=== PATIENT | female | born 1955 | race Caucasian/White ===

== ENCOUNTER → 2020-06-01 | Outpatient (CLI) | payer MEDICARE, OTHER ==
[~2020-06-01] MED LIST: ASPI81TA86 PO; ATOR1TAB19 PO; BUSP30TA PO; CLON0.2T PO; DOCU-129 PO; FAMO40TA3 PO; HYDR-3363 PO; JARD1TAB PO; LEVO75TA4 PO; LISI2.5T2 PO; MELA3TAB49 PO; METF10004 PO; MYRB50TA PO; OMEG1CAP4 PO; OXYB10TA23 PO; PANT40TA29 PO; QUET5TAB PO; VENL150C43 PO
== END ==
LOC: M LABSMTC 13:12
PROVIDERS: ATTEND Anesthesiology
DX: Z01.812 Encounter for preprocedural laboratory examination (principal); Z20.828 Contact with and (suspected) exposure to other viral communicable diseases
CPT/HCPCS: C9803; U0002

== ENCOUNTER 2020-06-02 11:51 | Day surgery (SDC) | payer MEDICARE ==
[~2020-06-02] VITALS: Ht 160 cm; Wt 83.9 kg
[~2020-06-02 11:51] MED LIST changes: +LIDOCAINE 1% MDV 20ML VIAL SQ PRN; +LR 1,000 ML IV ONE; +ceFAZolin SOD 2 GM in IV 1 EA IV ONE
[2020-06-02] MEDS ORDERED: fentaNYL 100 MCG/2 ML INJECTION (J3010) As Ordered ONE (11:59)
[2020-06-02] MEDS ORDERED: MIDAZOLAM INJ 2MG/2ML VIAL (J2250 PER 1MG) As Ordered ONE (11:59)
[2020-06-02] MEDS ORDERED: propofoL 500 MG/50 ML VIAL As Ordered ONE (12:00)
[2020-06-02] MEDS ORDERED: BACITRACIN OINTMENT 30GM TUBE As Ordered ONE (12:36)
[2020-06-02] MEDS ORDERED: LIDOCAINE 1% SDV 30ML VIAL As Ordered ONE (12:36)
[2020-06-02] MEDS ORDERED: VANCOMYCIN 1000MG/20ML VIAL As Ordered ONE (12:36)
[2020-06-02 14:40] VITALS: BP 122/80
--- NOTE | 2020-06-22 16:13 | RO ---
DATE OF OPERATION: 06/02/2020 PREOPERATIVE DIAGNOSIS: Pacemaker battery depletion. PREOPERATIVE DIAGNOSIS: Pacemaker battery depletion. FINDINGS: Pacemaker battery depletion. PROCEDURE: * Ex-plantation of old dual-chamber pacemaker pulse generator ([employer]). * Implantation of new dual-chamber pacemaker pulse generator. * Insertion of medium sized TYRX antimicrobial envelope. SURGEON: Dewayne Field M.D. GERM DRIER: None. ANESTHESIA: Lidocaine 1% local/monitor anesthetic care. SPECIMENS: Old [employer] pacemaker pulse generator. ESTIMATED BLOOD LOSS: Less than 5 mL. BLOOD PRODUCTS: No blood products were placed. DRAINS: No drains. COMPLICATIONS: None. PROCEDURE DESCRIPTION: The patient was prepped and draped over the left pectoral region and 3M Ioban film was applied. Lidocaine 1% was used for local anesthetic. A Peak PlasmaBlade was used to make an incision through the existing scar of the pacemaker pulse generator in the left pectoral region. The Peak PlasmaBlade was used to dissect down to the pacemaker pulse generator. I noticed that there was a pacemaker wire overlying the top of the header. The suture holding down the pacemaker pulse generator was cut with a 15-blade. The pulse generator was then removed from the pacemaker pocket. The existing terminal pins were removed from the pacemaker pulse generator after the set screws were loosened. Alligator clips were attached. The existing atrial and ventricle leads were tested using the pulse analyzer and they were found to be satisfactory. The patient was pacemaker dependent; therefore, R-waves were not tested. The terminal pins of the atrial leads were then plugged into their respective ports in the header of the new pacemaker pulse generator. Each one was secured by tightening the set screws with the hex screwdriver. A medium sized TYRX envelope was cut into four pieces and placed into the pacemaker pocket. Next, the new pacemaker pulse generator was placed into the existing pacemaker pocket with the excess lead material below. The deep layer was then closed using individual sutures consisting of 2-0 Vicryl. A few additional 3-0 Vicryl sutures were used to help approximate the more superficial area. The skin was then approximated using shelley. Bactroban ointment was then applied over the incision line, followed by a Telfa, followed by an OpSite dressing. The patient tolerated the procedure well without any immediate complications. The pacemaker pulse generator that was removed was a [employer] model S603 with serial number [id number], which was originally implanted on 02/21/2012 in [place]. The new pacemaker pulse generator implanted was a [employer] [address], which had model number L331 and serial number [id number]. The existing right atrial lead was a [employer] Fineline II, EV, Sterox bipolar IS-1, model 4469, and serial number [id number], originally implanted 02/21/2012. Testing in the operating room with device based measurements for the right atrial lead showed P with amplitude of 2.6 millivolts, with capture threshold of 0.6 volts at 0.4 milliseconds, with an impedance of 443 ohms. The existing right ventricle lead was a [employer] Capsure, Fix, Novus, bipolar IS-1, with model number 5076 and serial number [id number]. Device based testing in the operating room for the right ventricle lead showed capture threshold of 0.7 volts at 0.4 milliseconds with lead impedance of 517 ohms. No R-waves (patient is pacemaker dependent). [facility]
== END 2020-06-02 15:30 | disposition home or self-care (01) ==
LOC: M SDC 11:51
PROVIDERS: ATTEND Internal Medicine Cardiovascular Disease
DX: Z45.010 Encounter for checking and testing of cardiac pacemaker pulse generator [battery] (principal); Z88.5 Allergy status to narcotic agent; Z88.8 Allergy status to other drugs, medicaments and biological substances; J44.9 Chronic obstructive pulmonary disease, unspecified; K21.9 Gastro-esophageal reflux disease without esophagitis; E03.9 Hypothyroidism, unspecified; E11.9 Type 2 diabetes mellitus without complications; Z79.84 Long term (current) use of oral hypoglycemic drugs; Z79.899 Other long term (current) drug therapy; F32.9 Major depressive disorder, single episode, unspecified; F41.9 Anxiety disorder, unspecified
CPT/HCPCS: 33228; C1785; J0690; J2250; J3010; J3370

== ENCOUNTER → 2020-08-07 | Outpatient (REF) | payer MEDICARE ==
[~2020-08-07] MED LIST changes: -LIDOCAINE 1% MDV 20ML VIAL SQ PRN; -LR 1,000 ML IV ONE; -ceFAZolin SOD 2 GM in IV 1 EA IV ONE
[2020-08-07 19:04] LABS: APPEARANCE, URINE CLEAR (CLEAR); BACTERIA, URINE AUTO NEGATIVE (NEGATIVE); BILIRUBIN, URINE AUTO NEGATIVE (NEGATIVE); BLOOD, URINE BLOOD NEGATIVE (NEGATIVE); COLOR, URINE YELLOW (YELLOW); GLUCOSE, URINE (UA) AUTO 3+ mg/dL (NEGATIVE); KETONE, URINE AUTO TRACE mg/dL (NEGATIVE); LEUKOCYTE ESTERASE, URINE AUTO TRACE (NEGATIVE); NITRITE, URINE AUTO NEGATIVE (NEGATIVE); PROTEIN, URINE AUTO NEGATIVE (NEGATIVE); RBC, URINE AUTO 3 /HPF (0-3); SPECIFIC GRAVITY URINE AUTO 1.031 (1.002-1.035); SQUAMOUS EPITHELIAL CELL UR AU 0 /HPF (0-6); UROBILINOGEN, URINE AUTO 0.2 mg/dL (0.0-2.0); WBC, URINE AUTO 6 /HPF (0-3)
== END ==
LOC: M SMT 16:58
PROVIDERS: ATTEND Nurse Practitioner Women's Health
DX: R31.0 Gross hematuria (principal)
CPT/HCPCS: 81001; 87086; G0463

== ENCOUNTER → 2021-12-13 | Outpatient (REF) | payer MEDICARE ==
[~2021-12-13] MED LIST changes: -DOCU-129 PO; +DOCU-153 PO; -LISI2.5T2 PO; +LISI2.5T9 PO; -OMEG1CAP4 PO; +OMEG1CAP85 PO; +QUET50TA4 PO; -QUET5TAB PO
[2021-12-13 13:14] LABS: APPEARANCE, URINE HAZY (CLEAR); BACTERIA, URINE AUTO NEGATIVE (NEGATIVE); BILIRUBIN, URINE AUTO NEGATIVE (NEGATIVE); BLOOD, URINE BLOOD NEGATIVE (NEGATIVE); COLOR, URINE YELLOW (YELLOW); GLUCOSE, URINE (UA) AUTO NEGATIVE (NEGATIVE); KETONE, URINE AUTO NEGATIVE (NEGATIVE); LEUKOCYTE ESTERASE, URINE AUTO NEGATIVE (NEGATIVE); MUCUS, URINE SMALL (NEGATIVE); NITRITE, URINE AUTO NEGATIVE (NEGATIVE); PROTEIN, URINE AUTO NEGATIVE (NEGATIVE); RBC, URINE AUTO 1 /HPF (0-3); SPECIFIC GRAVITY URINE AUTO 1.019 (1.002-1.035); SQUAMOUS EPITHELIAL CELL UR AU 0 /HPF (0-6); WBC, URINE AUTO 2 /HPF (0-3)
== END ==
LOC: M SMT 12:37
PROVIDERS: ATTEND Nurse Practitioner Women's Health
DX: R32 Unspecified urinary incontinence (principal)

== ENCOUNTER → 2022-08-09 | Outpatient (REF) | payer MEDICARE ==
[2022-08-09 14:43] LABS: COLOR, URINE MANUAL LT YELLOW (YELLOW); SPECIFIC GRAVITY,URINE MANUAL 1.005 (1.002-1.035)
[2022-08-09 14:44] LABS: APPEARANCE, URINE MANUAL HAZY (CLEAR); BILIRUBIN, URINE MANUAL NEGATIVE (NEGATIVE); BLOOD URINE MANUAL NEGATIVE (NEGATIVE); GLUCOSE, URINE (UA) MANUAL 1+(100 MG/DL) mg/dL (NEGATIVE); KETONE, URINE MANUAL NEGATIVE (NEGATIVE); LEUKOCYTE ESTERASE, URINE MAN TRACE (NEGATIVE); NITRITE, URINE MANUAL NEGATIVE (NEGATIVE); PROTEIN, URINE MANUAL NEGATIVE (NEGATIVE); UROBILINOGEN, URINE MANUAL NORMAL (NORMAL)
[2022-08-09 15:10] LABS: BACTERIA, URINE LARGE AMOUNT; HYALINE CAST, URINE NONE SEEN /lpf (0-1); RBC, URINE 0-1 /hpf (0-3); SQUAMOUS EPITHELIAL CELL URINE SMALL AMOUNT /hpf (SMALL AMT)
== END ==
LOC: M SMT 12:54
PROVIDERS: ATTEND Urology
DX: N32.81 Overactive bladder (principal)

== ENCOUNTER 2024-06-03 15:19 | Inpatient (IN) | payer MEDICARE ==
[~2024-06-03 15:19] MED LIST changes: -DOCU-153 PO; +OMEG-28 PO; -OMEG1CAP85 PO; +STOO100C30 PO
[2024-06-03 16:50] VITALS: BP 131/60; TEMP 97.3; O2SAT 98
[2024-06-03 17:36] LABS: BASO % 0.3 % (0.0-1.0); HEMATOCRIT 42.8 % (36.0-47.0); LYMPH # 1.3 10^3/uL (1.5-5.0); LYMPH % 11.9 % (24.0-44.0); MEAN CORPUSCULAR HEMOGLOBIN 27.4 pg (27.0-33.0); MEAN CORPUSCULAR HGB CONC 30.4 g/dl (32.0-36.5); MEAN CORPUSCULAR VOLUME 90.3 fl (80.0-96.0); MONO # 0.6 10^3/uL (0.0-0.8); MONO % 5.4 % (2.0-8.0); NEUTROPHILS # 9.1 10^3/uL (1.5-8.5); NEUTROPHILS % 81.9 % (36.0-66.0); PLATELET COUNT, AUTOMATED 237 10^3/uL (150-450); RED BLOOD COUNT 4.74 10^6/uL (4.00-5.40); WHITE BLOOD COUNT 11.1 10^3/uL (4.0-10.0)
[2024-06-03] MEDS: INSULIN LISPRO (NovoLOG) PER UNIT SC SCH (18:00)
[2024-06-03 18:02] LABS: ALBUMIN 3.5 G/DL (3.2-5.2); ALKALINE PHOSPHATASE 87 U/L (46-116); ALT/SGPT 22 U/L (7.0-40); AST/SGOT 17 U/L (<34); BILIRUBIN,TOTAL 0.3 MG/DL (0.3-1.2); BLOOD UREA NITROGEN 15 MG/DL (9-23); CALCIUM LEVEL 8.7 MG/DL (8.3-10.6); CARBON DIOXIDE LEVEL 28 MMOL/L (20-31); CHLORIDE LEVEL 112 MMOL/L (98-107); CREATININE FOR GFR 0.61 MG/DL (0.55-1.30); GLOMERULAR FILTRATION RATE > 60.0 (>39); GLUCOSE, FASTING 108 MG/DL (74-106); POTASSIUM SERUM 4.4 MMOL/L (3.5-5.1); SODIUM LEVEL 144 MMOL/L (136-145); TOTAL PROTEIN 5.8 G/DL (5.7-8.2)
[2024-06-03] MEDS ORDERED: GLUCOSE 4 GM CHEW PO PRN (18:05)
[2024-06-03] MEDS ORDERED: DEXTROSE 50% 50ML SYRINGE IV PRN (18:05)
[2024-06-03] MEDS ORDERED: HYDROmorphone 2 MG TAB PO PRN (18:05)
[2024-06-03] MEDS ORDERED: GLUCAGON INJ 1MG VIAL SC PRN (18:05)
[2024-06-03] MEDS: LORazepam 2 MG/ML 1ML VIAL IV STA (18:16)
[2024-06-03] MEDS: LORazepam 2 MG/ML 1ML VIAL IV ONE (18:17)
[2024-06-03] MEDS: NS 1,000 ML IV SCH (18:26)
[2024-06-03] MEDS ORDERED: ISOVUE-370 76% 100ML VIAL As Ordered ONE (18:57)
[2024-06-03 18:58] LABS: C REACTIVE PROTEIN QUANTITATIV < 0.40 MG/DL (<1.0)
[2024-06-03 19:47] VITALS: BP 119/59; TEMP 97.6; O2SAT 59; O2SAT 99
[2024-06-03] MEDS: HYDROMORPHONE HCL 0.5 MG/ 0.5 ML SYRINGE IV PRN (19:51)
[2024-06-03 20:11] LABS: ERYTHROCYTE SEDIMENTATION RATE 2 mm/hr (0-30)
[2024-06-03 23:38] VITALS: BP 129/60; TEMP 97.6; O2SAT 98
[2024-06-04] MEDS ORDERED: MELA3TAB30 PO
[2024-06-04] MEDS ORDERED: ATOR1TAB21 PO
[2024-06-04] MEDS ORDERED: JARD1TAB3 PO
[2024-06-04] MEDS ORDERED: ASPI81TA26 PO
[2024-06-04] MEDS ORDERED: VENL75CA47 PO
[2024-06-04] MEDS ORDERED: MECL-86 PO
[2024-06-04] MEDS ORDERED: JANU100T PO
[2024-06-04] MEDS ORDERED: ELIQ5TAB PO
[2024-06-04] MEDS ORDERED: ACAR100T PO
[2024-06-04] MEDS ORDERED: CALC1TAB42 PO (00:02)
[2024-06-04] MEDS ORDERED: HOME MED LIST COMPLETE! XX SCH (00:05)
[2024-06-04 03:26] VITALS: BP 93/50; TEMP 98.2; O2SAT 94
[2024-06-04 03:53] VITALS: BP 98/60
[2024-06-04] MEDS: LEVOTHYROXINE 75MCG TABLET (0.075MG) PO SCH (06:00)
[2024-06-04] MEDS ORDERED: MECLIZINE 25 MG TABLET PO PRN (06:50)
[2024-06-04 07:39] LABS: BASO % 0.3 % (0.0-1.0); HEMATOCRIT 40.8 % (36.0-47.0); HEMOGLOBIN 12.4 g/dl (12.0-15.5); LYMPH # 1.8 10^3/uL (1.5-5.0); LYMPH % 26.1 % (24.0-44.0); MEAN CORPUSCULAR HEMOGLOBIN 27.3 pg (27.0-33.0); MEAN CORPUSCULAR HGB CONC 30.4 g/dl (32.0-36.5); MEAN CORPUSCULAR VOLUME 89.9 fl (80.0-96.0); MONO # 0.5 10^3/uL (0.0-0.8); MONO % 7.9 % (2.0-8.0); NEUTROPHILS # 4.4 10^3/uL (1.5-8.5); NEUTROPHILS % 65.3 % (36.0-66.0); PLATELET COUNT, AUTOMATED 226 10^3/uL (150-450); RED BLOOD COUNT 4.54 10^6/uL (4.00-5.40); WHITE BLOOD COUNT 6.7 10^3/uL (4.0-10.0)
[2024-06-04 08:03] LABS: C REACTIVE PROTEIN QUANTITATIV < 0.40 MG/DL (<1.0)
[2024-06-04 08:17] LABS: ERYTHROCYTE SEDIMENTATION RATE 6 mm/hr (0-30)
[2024-06-04 08:26] VITALS: BP 118/57; TEMP 96.9; O2SAT 95
[2024-06-04 08:34] LABS: ALBUMIN 3.1 G/DL (3.2-5.2); ALKALINE PHOSPHATASE 81 U/L (46-116); ALT/SGPT 18 U/L (7.0-40); AST/SGOT 14 U/L (<34); BILIRUBIN,TOTAL 0.5 MG/DL (0.3-1.2); BLOOD UREA NITROGEN 14 MG/DL (9-23); CALCIUM LEVEL 8.5 MG/DL (8.3-10.6); CARBON DIOXIDE LEVEL 29 MMOL/L (20-31); CHLORIDE LEVEL 112 MMOL/L (98-107); CREATININE FOR GFR 0.66 MG/DL (0.55-1.30); GLOMERULAR FILTRATION RATE > 60.0 (>39); GLUCOSE, FASTING 87 MG/DL (74-106); POTASSIUM SERUM 4.6 MMOL/L (3.5-5.1); SODIUM LEVEL 145 MMOL/L (136-145); TOTAL PROTEIN 5.4 G/DL (5.7-8.2)
[2024-06-04] MEDS ORDERED: VITAMIN D 1,000 INTERNATIONAL UNITS TABLET PO SCH (09:00)
[2024-06-04] MEDS ORDERED: VITAMIN D (CHOLECALCIFEROL) 400 INTERNATIONAL UNITS TAB PO SCH (09:00)
[2024-06-04] MEDS ORDERED: VENLAFAXINE **XR** 75MG CAPSULE PO SCH (09:00)
[2024-06-04] MEDS: SITagliptin 50 MG TAB (JANUVIA) PO SCH (10:26)
[2024-06-04] MEDS: PANTOPRAZOLE 40MG TAB (PROTONIX) PO SCH (10:32)
[2024-06-04] MEDS: VENLAFAXINE **XR** 75MG CAPSULE PO SCH (10:32)
[2024-06-04] MEDS: OMEGA-3 1000MG CAPSULE PO SCH (10:33)
[2024-06-04] MEDS: ATORVASTATIN 20 MG TAB PO SCH (10:34)
[2024-06-04] MEDS: busPIRone 10 MG TAB PO SCH (10:34)
[2024-06-04] MEDS: ASPIRIN 81MG ENTERIC TABLET PO SCH (10:35)
[2024-06-04] MEDS: INSULIN LISPRO (NovoLOG) PER UNIT SC SCH (11:55)
[2024-06-04 12:00] VITALS: BP 126/58; TEMP 97.5; O2SAT 100
[2024-06-04] MEDS: BISACODYL 10MG SUPP PR ONE (12:09)
[2024-06-04] MEDS: CALCIUM/VITAMIN D 500 MG TAB PO SCH (12:09)
[2024-06-04 13:22] LABS: PROCALCITONIN 0.04 ng/ml
[2024-06-04] MEDS: APIXABAN 5 MG TAB (ELIQUIS) PO SCH (13:57)
[2024-06-04] MEDS ORDERED: MM S100C PO (14:47)
[2024-06-04] MEDS ORDERED: INSULIN LISPRO (NovoLOG) PER UNIT SC SCH (21:00)
[2024-06-04] MEDS ORDERED: FAMOTIDINE 20 MG TAB PO SCH (21:00)
== END 2024-06-04 16:57 | disposition home or self-care (01) | DRG 390 ==
LOC: M PCU 16:50
PROVIDERS: ADMIT General Practice; ATTEND Internal Medicine
DX: K56.609 Unspecified intestinal obstruction, unspecified as to partial versus complete obstruction (principal); E11.9 Type 2 diabetes mellitus without complications; E78.5 Hyperlipidemia, unspecified; E03.9 Hypothyroidism, unspecified; K21.9 Gastro-esophageal reflux disease without esophagitis; F41.9 Anxiety disorder, unspecified; F32.A Depression, unspecified; N39.41 Urge incontinence; I48.91 Unspecified atrial fibrillation; R04.0 Epistaxis; I10 Essential (primary) hypertension; Z95.0 Presence of cardiac pacemaker; Z79.01 Long term (current) use of anticoagulants; Z79.82 Long term (current) use of aspirin; Z79.890 Hormone replacement therapy; Z79.899 Other long term (current) drug therapy; Z88.5 Allergy status to narcotic agent; Z88.8 Allergy status to other drugs, medicaments and biological substances

== ENCOUNTER 2024-12-15 11:20 | Day surgery (SDC) | payer MEDICARE ==
[~2024-12-15] VITALS: Ht 160 cm; Wt 68.0 kg
[~2024-12-15 11:20] MED LIST changes: +ACAR100T PO; +ACET32TAB PO; +ASPI81TA26 PO; +ATOR1TAB21 PO; +CALC1TAB42 PO; +ELIQ5TAB PO; +JANU100T PO; +JARD1TAB3 PO; +MECL-86 PO; +MELA3TAB30 PO; +MIRA3350 PO; +MM S100C PO; +QC F0.52 PO; +SUCR1TAB56 PO; +VENL75CA47 PO
[2024-12-15] MEDS ORDERED: LR 1,000 ML IV SCH ×2 (12:10→17:45)
[2024-12-15] MEDS ORDERED: GLUCAGON INJ 1MG VIAL SC PRN (12:10)
[2024-12-15] MEDS ORDERED: LIDOCAINE 1% SDV 5ML VIAL SC PRN (12:10)
[2024-12-15] MEDS ORDERED: INSULIN LISPRO (NovoLOG) PER UNIT SC PRN (12:10)
[2024-12-15] MEDS ORDERED: GLUCOSE 4 GM CHEW PO PRN (12:10)
[2024-12-15] MEDS ORDERED: DEXTROSE 50% 50ML SYRINGE IV PRN (12:10)
[2024-12-15] MEDS ORDERED: fentaNYL 250 MCG/5 ML INJECTION As Ordered ONE (14:57)
[2024-12-15] MEDS ORDERED: MIDAZOLAM INJ 2MG/2ML VIAL As Ordered ONE (14:57)
[2024-12-15] MEDS ORDERED: ACETAMINOPHEN 1000MG/100ML IV BAG As Ordered ONE (14:58)
[2024-12-15] MEDS ORDERED: propofoL 200 MG/20 ML VIAL As Ordered ONE (14:58)
[2024-12-15] MEDS ORDERED: ROCURONIUM BROMIDE 50MG/5ML VIAL As Ordered ONE (14:58)
[2024-12-15] MEDS ORDERED: SUGAMMADEX SODIUM 500 MG/5 ML VIAL (BRIDION) As Ordered ONE (14:58)
[2024-12-15] MEDS ORDERED: LIDOCAINE 2% 100MG/5ML SDV (FOR ANES.) As Ordered ONE (14:58)
[2024-12-15] MEDS ORDERED: ONDANSETRON 4MG 2ML VIAL As Ordered ONE (14:58)
[2024-12-15] MEDS ORDERED: INDOCYANINE GREEN 25MG VIAL (IC-GREEN) As Ordered ONE (15:02)
[2024-12-15] MEDS ORDERED: KETOROLAC 30 MG/ML 1ML VIAL As Ordered ONE (15:08)
[2024-12-15] MEDS ORDERED: METOCLOPRAMIDE INJ 10MG/2ML VIAL As Ordered ONE (15:14)
[2024-12-15] MEDS ORDERED: SCOPOLAMINE 1MG TRANSDERMAL PATCH As Ordered ONE (15:15)
[2024-12-15] MEDS: INDOCYANINE GREEN 25MG VIAL (IC-GREEN) IV ONE (16:47)
[2024-12-15] MEDS: HEPARIN SOD (PORCINE) 5000UNITS/ML 1ML VIAL/SYRINGE SQ ONE (16:47)
[2024-12-15] MEDS: ceFAZolin SOD 2 GM IV ONCE IV ONE (16:47)
[2024-12-15] MEDS ORDERED: PHENYLEPHRINE 10MG/ML 1ML VIAL As Ordered ONE (16:51)
[2024-12-15] MEDS ORDERED: oxyCODONE 5MG TAB PO PRN (17:45)
[2024-12-15] MEDS ORDERED: HYDROMORPHONE HCL 0.5 MG/ 0.5 ML SYRINGE IV PRN (17:45)
[2024-12-15] MEDS ORDERED: fentaNYL 100 MCG/2 ML INJECTION IV PRN (17:45)
[2024-12-15] MEDS ORDERED: ONDANSETRON 4MG 2ML VIAL IV PRN (17:45)
[2024-12-15 18:35] VITALS: BP 131/74; TEMP 96.9; O2SAT 96
== END 2024-12-15 19:07 | disposition home or self-care (01) ==
LOC: M SDC 11:20
PROVIDERS: ATTEND Surgery
DX: K80.10 Calculus of gallbladder with chronic cholecystitis without obstruction (principal); I48.91 Unspecified atrial fibrillation; E11.9 Type 2 diabetes mellitus without complications; J44.9 Chronic obstructive pulmonary disease, unspecified; E03.9 Hypothyroidism, unspecified; Z95.0 Presence of cardiac pacemaker; Z79.899 Other long term (current) drug therapy; Z79.01 Long term (current) use of anticoagulants; Z79.890 Hormone replacement therapy; Z79.82 Long term (current) use of aspirin; Z79.84 Long term (current) use of oral hypoglycemic drugs; K21.9 Gastro-esophageal reflux disease without esophagitis; Z88.8 Allergy status to other drugs, medicaments and biological substances; Z88.5 Allergy status to narcotic agent
CPT/HCPCS: 47562; 88304; J0131; J0665; J0690; J1100; J1885; J2250; J2371; J2405; J2765; J3010; Q9968